=== PATIENT | male | born 1965 | race Caucasian/White ===

== ENCOUNTER → 2022-08-28 14:28 | Outpatient (BNVA) | payer OTHER, SELFPAY | PROVIDERS: PCP Family Medicine; Visit Provider Family Medicine | DX: Z13.220 Encounter for screening for lipoid disorders (principal); Z00.00 Encounter for general adult medical examination without abnormal findings; Z51.81 Encounter for therapeutic drug level monitoring | CPT/HCPCS: 80053; 80061; 85025 ==

== ENCOUNTER 2022-12-05 06:31 | Day surgery (SDC) | payer OTHER, SELFPAY ==
[2022-12-03 10:46] VITALS: BMI 19.6
[2022-12-05] MEDS: sodium chloride 0.9% 1,000 ML 30 ML IV (06:50)
[2022-12-05 06:52] VITALS: BP 103/78; PULSE 90; RESP 18; TEMP 36.1; O2SAT 97
--- NOTE | 2022-12-05 07:40 | ANES.PREANE2 ---
Pre-Anesthetic Assessment Height/Weight: Height 1.83 m Weight 65.771 kg Temp Pulse Resp BP Pulse Ox O2 Del Method 97.0 F L 90 18 103/78 97 12/05/22 06:52 12/05/22 06:52 12/05/22 06:52 12/05/22 06:52 12/05/22 06:52 12/05/22 06:52 Preop Diagnosis: Screening Operation Date: 12/05/22 08:15 Proposed Procedures p Colonoscopy 30517,Z12.11(Not Applicable) - Lino Beck DO Familial anesthetic complications: None Was Beta Darian taken within 24 hours: N/A Was Clonidine taken within 24 hours: N/A Last intake: Intake Last Liquid Date 12/04/22 Last Liquid Time 22:00 Last Solid Date 12/03/22 Last Solid Time 19:00 Social No alcohol 1.5 pack(s) per day 40 pack years Exam alert, oriented x 3 and clear to auscultation bilaterally Airway Submandibular: within normal limits Cervical ROM: within normal limits Mallampati: Class II Dentition: false History/ROS No significant history except as noted Pulmonary Chronic Obstructive Pulmonary Disease does not use inhaler CV/HEM None reported None reported Hepatic None reported GI Gastroesophageal Reflux Disease occasional GERD related to diet Metabolic None reported Musc/skel None reported Neuropsych None reported Anesthetic Plan ASA status: 2 Anesthesia: Anesthesia Evaluation and MAC Risk of > 500 ml blood loss (7ml/kg in children): No Medications/Allergies Home Medications Medication Instructions Recorded Confirmed Last Taken Type terbinafine HCl 250 mg tablet 250 mg PO DAILY 12 weeks #90 tabs 10/14/22 12/05/22 Unknown Rx Allergies Allergy/AdvReac Type Severity Reaction Status Date / Time Penicillins Allergy Unknown Verified 12/05/22 06:48 Current Medications Generic Name Dose Route Start Last Admin Trade Name Freq PRN Reason Stop Dose Admin Sodium Chloride 1,000 mls @ 30 mls/hr 12/05/22 06:45 12/05/22 06:50 Sodium Chloride 0.9% IV 12/06/22 06:44 30 mls/hr .Q24H LUDWIN Administration PFSH Anesthesia Surgical History (Updated 08/28/22 @ 14:03 by Mack Zepeda MD) Hx of tonsillectomy Family History (Updated 08/28/22 @ 16:56 by Mack Zepeda MD) Other Cancer Social History (Updated 08/28/22 @ 14:02 by Mack Zepeda MD) Smoking and tobacco status: current every day smoker cigarettes [ Other cigarette details: Started at age 17 and smokes 1-1.5 ppd] Alcohol intake: never 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
--- NOTE | 2022-12-05 08:33 | P.HP_ITS ---
Providers/Chief Complaint Primary Care Provider: Mack Zepeda MD Chief Complaint: Encounter for screening for malignant neoplasm of History of Present Illness Johnny Hay JR is a 57 year old male here for his first screening colon oscopy. He denies abdominal pain, nausea, emesis, diarrhea, constipation, hematochezia and/or melena. He reports that his great grandmother on his dad side had colon cancer. Medications/Allergies Home Medications Medication Instructions Recorded Confirmed Last Taken Type terbinafine HCl 250 mg tablet 250 mg PO DAILY 12 weeks #90 tabs 10/14/22 12/05/22 Unknown Rx Allergies Allergy/AdvReac Type Severity Reaction Status Date / Time Penicillins Allergy Unknown Verified 12/05/22 06:48 PFSH Acute PFSH: Surgical History (Updated 08/28/22 @ 14:03 by Mack Zepeda MD) Hx of tonsillectomy Family History (Updated 08/28/22 @ 16:56 by Mack Zepeda MD) Other Cancer Social History (Updated 08/28/22 @ 14:02 by Mack Zepeda MD) Smoking and tobacco status: current every day smoker cigarettes [ Other cigarette details: Started at age 17 and smokes 1-1.5 ppd] Alcohol intake: never 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 The patient is understanding of the risks and wishes to proceed. Attestations Medical Necessity Statement*: Home Coding Level of Care Code Acute Code for Chg Fwd Diagnoses Colon cancer screening Z12.11
[2022-12-05 08:53] VITALS: BP 182/76; PULSE 77; RESP 12; TEMP 36.1; O2SAT 96
[2022-12-05 09:03] VITALS: BP 98/75; PULSE 55; RESP 14; O2SAT 95
[2022-12-05 09:17] VITALS: BP 99/70; PULSE 68; RESP 16; O2SAT 98
--- NOTE | 2022-12-05 17:58 | ANE.PACU2 ---
Inpatient post-anesthesia follow up: Airway intact: Yes Vital signs: Temperature 97 F Pulse Rate 68 Respiratory Rate 16 Blood Pressure 99/70 Pulse Oximetry 98 Oxygen Delivery Me thod Room Air Oxygen Flow Rate 2 Fraction of Inspir ed Oxygen Hydration adequate: Yes Nausea and vomiting: No Pain level: 1 Mental status: Baseline
== END 2022-12-05 09:36 | disposition home or self-care (01) ==
PROVIDERS: PCP Family Medicine; Visit Provider Surgery
PROC: 0DJD8ZZ Inspection of Lower Intestinal Tract, Via Natural or Artificial Opening Endoscopic (ICD-10-PCS; CPT 45378; principal; 2022-12-05 08:15)
DX: Z12.11 Encounter for screening for malignant neoplasm of colon (principal); K64.8 Other hemorrhoids; D12.5 Benign neoplasm of sigmoid colon; D12.8 Benign neoplasm of rectum; F17.210 Nicotine dependence, cigarettes, uncomplicated; J44.9 Chronic obstructive pulmonary disease, unspecified; K21.9 Gastro-esophageal reflux disease without esophagitis
CPT/HCPCS: 45385; 88305; J2704; J7030

== ENCOUNTER 2023-08-31 13:58 | Outpatient (CLI) | payer OTHER, SELFPAY ==
--- NOTE | 2023-08-31 14:13 | XRR_ITS ---
PROCEDURE INFORMATION: Exam: XR Left Shoulder Exam date and time: 08/31/2023 2:47 PM Age: 58 years old Clinical indication: Pain; Shoulder; Left; Additional info: Left shoulder pain TECHNIQUE: Imaging protocol: Radiologic exam of the left shoulder. Views: 2 or more views. COMPARISON: CR XR cervical spine 3V* [id number] 08/31/2023 2:47 PM FINDINGS: Bones/joints: Normal. Soft tissues: Normal. XR/XR shoulder LT min 2V* [id number] IMPRESSION: No acute findings.
--- NOTE | 2023-08-31 14:13 | XRR_ITS ---
PROCEDURE INFORMATION: Exam: XR Cervical Spine Exam date and time: 08/31/2023 2:47 PM Age: 58 years old Clinical indication: Radicular pain (radiculopathy); Cervical region; Additional info: Cervical radiculopathy TECHNIQUE: Imaging protocol: Radiologic exam of the cervical spine. Views: 2 or 3 views. COMPARISON: CR XR shoulder LT min 2V* [id number] 08/31/2023 2:47 PM FINDINGS: Bones/joints: No acute fracture. Normal alignment. Minimal degenerative endplate changes of the mid and lower cervical spine. Soft tissues: Unremarkable. XR/XR cervical spine 3V* [id number] IMPRESSION: No acute findings.
== END 2023-08-31 13:59 | disposition home or self-care (01) ==
PROVIDERS: PCP Family Medicine; Visit Provider Family Medicine
DX: M25.512 Pain in left shoulder (principal); M54.12 Radiculopathy, cervical region
CPT/HCPCS: 72040; 73030

== ENCOUNTER 2023-10-01 06:59 | Outpatient (CLI) | payer OTHER, SELFPAY ==
--- NOTE | 2023-10-01 07:15 | MR_ITS ---
WS: [id number] MRI LEFT SHOULDER HISTORY: Left shoulder pain COMPARISON: Radiograph 08/31/2023 TECHNIQUE: Multiplanar sequences of the shoulder joint are submitted. Very mild AC joint arthritis. No significant osteophyte encroachment upon the supraspinatus muscle. S light downsloping of the acromion with mild subacromial impingement. There is a small amount of incre ased T2 signal in the supraspinatus muscle and tendon at the site of the subacromial impingement. No bursitis. Biceps tendon in normal position. No os acromion. No muscle atrophy or edema. No rotator cuff tendon tear. There is a small amount of marrow edema at t he site of the infraspinatus tendon attachment. No significant joint effusion. Degenerative changes n oted throughout the labrum. No tear is identified. IMPRESSION: 1. Moderate subacromial impingement with contact and deformity of the distal supraspinatus tendon and adjacent tendinopathy. 2. No rotator cuff tendon tear identified. 3. Subchondral cystic changes at the insertion site of the infraspinatus tendon. 4. Very mild AC joint arthropathy.
== END 2023-10-01 07:00 | disposition home or self-care (01) ==
LOC: RAD 06:59
PROVIDERS: PCP Family Medicine; Visit Provider Family Medicine
DX: M75.42 Impingement syndrome of left shoulder (principal); M19.012 Primary osteoarthritis, left shoulder
CPT/HCPCS: 73221

== ENCOUNTER 2025-01-20 07:29 | Outpatient (CLI) | payer OTHER, SELFPAY ==
[2025-01-20 07:48] VITALS: BMI 20.3
--- NOTE | 2025-01-20 07:49 | ECG_ITS ---
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 Interpretive Statements Patient unable to meet Target HR for Exercise mibi after 9:35 of exercise. Order switched to Lexiscan mibi. Lung unchanged pre/post procedure; Intraprocedure shortess of breath; ; Symptoms resoled by discharge PROCEDURE: At the baseline, the EKG revealed normal sinus rhythm with a normal ST Ts. Small Q waves inferior leads, possible old inferior [place].. The baseline heart was 80 bpm with a blood pressue of 113/88 mm of Hg Lexiscan was infused over a period of 20 seconds. A total of 0.4 milligrams of Lexiscan was infused. The stress phase was continued for a total of 5 minutes. Heart rate at the end of the stress phase was 101 bpm with a blood pressure 109/70 mm of Hg. The EKG at the peak infusion revealed no significant changes. Sestamibi was injected 20 seconds after the Lexiscan infusion. Heart rate at the end of the recovery phase was 99 bpm with a blood pressure of 107/70 mm of Hg. CONCLUSION: 1. No significant EKG changes with the LexiScan infusion 2. No LexiScan induced chest pain or cardiac arrhythmia 3. Normal blood pressure and heart rate response 4. Sestamibi/sestamibi perfusion scan pending; see separate report. Electronically Signed On 01-20-2025 14:14:03 CDT by Phi Ferro M.D. [email or web address]
--- NOTE | 2025-01-20 07:49 | NMCV_ITS ---
NM cherelle perf SPECT r/s* [id number] Johnny Hay Age: 59 Gender: M : 1965 Exam Date: 01/20/2025 08:44 Ordering Phys: Mack Zepeda MD Technologist: JOEL Vidal Exam Location: [facility] Indications: CP STRESS TEST Please see separate stress test report in [facility] for full findings IMAGE PROTOCOL Rest/Stress 1 Lexiscan Day Radiopharmaceutical Dose (mCi) Administration Site Administered by Rest: Tc-99m 10.6 IV Tonya Saeed, INDUSTRIAL SERVICER Sestamibi Stress:Tc-99m 32.7 IV Tonya Ortegagle, INDUSTRIAL SERVICER Sestamibi Rest: 20-Jan-2025 60 Discovery 630 Stress: 20-Jan-2025 30 Discovery 630 0.4mg Lexiscan. Supine position only as patient was unable to lay prone. SPECT RESULTS Technical Quality: Good Raw Data Analysis: Normal Image Corrections: No attenuation or motion correction applied Summed Stress Score: 8 Summed Rest Score: 5 Summed Difference Score: 4 PERFUSION FINDINGS Moderate area of minimal to moderately decreased tracer uptake nvolving the mid and apical inferior, mid inferoseptal, mid inferolateral and apical lateral segments. Significant reversibility was noted in the mid inferior region with slight reversibility in the inferolateral and apical inferior regions, at the supine position. Compared to the prone position, no significant reversibility was noted FUNCTIONAL RESULTS (calculated via Gated SPECT) Stress Image LV EF (%): 68 Stress EDV (mL):80 TID: 1.02 Stress ESV (mL):26 FUNCTIONAL FINDINGS: Segmental wall motion analysis revealing no gross wall motion abnormalities IMPRESSIONS 1. Myocardial perfusion imaging revealing moderate area of minimal to moderately decreased tracer uptake involving the inferior, inferolateral and inferoseptal regions with some reversibility suggesting myocardial scarring with ischemia in the distribution of the right coronary artery/circumflex artery. However because of the inconsistency with the prone imaging, this could, most likely be artifactual.. Clinical correlation is recommended. 2. Normal LV ejection fraction of 68%. 3. LV wall motion analysis revealing no gross wall motion abnormalities. 4. Normal LV volume. No similar previous studies are available for comparison Dr Phi Ferro MD [facility] (Electronically Signed) Final Date: 20 January 2025 11:16 S
--- NOTE | 2025-01-20 09:26 | PC.NURSE ---
Stress test Exercise mibi performed as ordered by physician. Pt unable to meet target HR after 9:35 of exercise on treadmill. Due to leg fatigue and shortness of breath treadmill stopped. Pt only met 80% of target HR. Dr. Ferro notified of incomplete exercise mibi. Telephone orders received to proceed with Lexiscan mibi.
[2025-01-20] MEDS: regadenoson 0.4 Mg/5 ml Syringe IVP (09:31)
[2025-01-20 09:41] VITALS: BP 107/75; PULSE 99
== END 2025-01-20 07:30 | disposition home or self-care (01) ==
PROVIDERS: PCP Family Medicine; Visit Provider Family Medicine
DX: R07.9 Chest pain, unspecified (principal); R93.1 Abnormal findings on diagnostic imaging of heart and coronary circulation
CPT/HCPCS: 36415; 78452; 93017; 96374; A9500; J2785

== ENCOUNTER 2025-02-17 11:33 | Outpatient (CLI) | payer OTHER, SELFPAY ==
[2025-02-17 13:01] LABS: Basophils # 0.1 10^3/uL (0.0-0.1); Basophils % 0.9 %; Eosinophils % 0.1 %; Hematocrit 44.4 % (37-53); Lymphocytes # 2.8 10^3/uL (0.8-4.8); Lymphocytes % 34.6 %; Mean Corpuscular Hemoglobin 29.1 pg (27-33); Mean Platelet Volume 9.1 fL (7.4-10.4); Monocytes # 1.5 10^3/uL (0.2-0.9); Monocytes % 18.4 %; Neutrophils # 3.73 10^3/uL (1.8-7.7); Neutrophils % 45.8 %; Nucleated Red Blood Cells % 0 %; Platelet Count 241 10^3/cmm (157-399); Red Blood Count 4.88 10^6/uL (3.85-5.65); Red Cell Distribution Width 13.5 % (12.1-15.1); White Blood Count 8.15 10^3/uL (3.29-11.43)
[2025-02-17 13:18] LABS: INR 0.94 (0.83-1.21); Prothrombin Time (Patient) 13.3 Seconds (12.0-15.1)
[2025-02-17 13:21] LABS: Anion Gap 15.2 (5-19); Blood Urea Nitrogen 7 mg/dL (6-20); Calcium 8.8 mg/dL (8.5-10.5); Carbon Dioxide 23 mmol/L (22-29); Chloride 102 mmol/L (98-107); Glucose 73 mg/dL (65-115); Osmolality Calculated 279 mOsm/kg (285-295); Potassium 4.2 mmol/L (3.5-5.1); Sodium 136 mmol/L (136-145)
== END 2025-02-17 11:34 | disposition home or self-care (01) ==
LOC: LAB 11:38
PROVIDERS: PCP Family Medicine; Visit Provider Internal Medicine
DX: R94.39 Abnormal result of other cardiovascular function study (principal); R07.9 Chest pain, unspecified
CPT/HCPCS: 36415; 80048; 85025; 85610

== ENCOUNTER 2025-02-20 05:48 | Outpatient (CLI) | payer OTHER, SELFPAY ==
[2025-02-20] VITALS (12 sets, daily range): BP systolic 93–108; BP diastolic 63–74; PULSE 54–77; RESP 15–24; TEMP 36.7; O2SAT 92–99; BMI 20.3
--- NOTE | 2025-02-20 06:00 | XACV_ITS ---
Exam Room: 2 Ht: 183 cm Wt: 68 kg BSA: 1.85 m2 Gender: Male : 1965 Any Known Allergies: Penicillins Exam Priority: Routine Procedure(s): Procedure Description: Diagnostic procedure Procedure Description: Coronary angiogram Diagnostic Cath Status: Elective Diagnostic Findings * INDICATION: Chest pain/abnormal stress test. * No significant disease noted in the Left Main, Left Anterior Descending, Right, or Circumflex coronary arteries. * Coronary angiography shows right dominance. Conclusions 1. No significant disease noted in the Left Main, Left Anterior Descending, Right, or Circumflex coronary arteries. 2. Normal left ventricular systolic function. Ejection fraction of 50%. Recommendations * Risk factor modification. * Outpatient cardiology follow up in 2 weeks. Interventional RX Recommendation: medical therapy and/or counseling Diagnostic RX Recommendation: medical therapy and/or counseling Anticoagulation: Heparin Ventriculography Ejection Fraction: 50.0 % Pressures Phase:Rest AO : 79 / 55 ( 64 ) @ 10:18:00 AM 97 / 65 ( 79 ) @ 10:26:00 AM 97 / 65 ( 79 ) @ 10:26:00 AM LV : 105 / -9 / 9 @ 10:24:00 AM 107 / -8 / 11 @ 10:26:00 AM 108 / -7 / 11 @ 10:26:00 AM Valves Phase:DefaultPhase AV : 11.0 @ 9:31:43 AM AV Mean Gradient: 9.0 @ 9:31:43 AM Clinical Evaluation EBL: 5mL-10mL Procedural Details Procedure Consent Obtained. Pre-Procedure Time Out. Identified patient by full name and date of as verbalized by the patient/guarantor. Does the consent match the physician's order: Yes. Accurate & Complete Informed Consent: Yes. Inpatient/Outpatient History & Physical on Chart: Yes. If H&P is completed, is and addenduem needed: No; If yes, is the addendum complete: N/A. Visualize and Verify Site with Patient/Guarantor: N/A. Relevant Radiology Images available: Yes. Pre-op teaching completed and patient verbalized understanding. The risks, benefits, and alternatives of sedation and/or procedure were discussed by physician. The patient agrees to continue. Procedure started. Physician arrived. [facility] Clinical Fraility Score: 3: Managing Well. Property Master Indications: Suspected CAD. Chest Pain Symptom Assessment: Typical Angina Symptoms. Correct patient, site and procedure confirmed by cath team. Current diagnosis: Chest Pain. PERRLA. Strong, equal hand predatory animal trapper bilaterally. Lungs clear x 5 lobes. IV Site on Arrival: 20 gauge in the right forearm. IV Fluids: 0.9% NaCl at KVO. 0 mL infused prior to incinerator plant laborer. Oxygen started at 2liters/min via nasal canula. Pre Procedural Pulses: bilateral dorsalis pedis was 2+. Pre Procedural Pulses: bilateral posterior tibial was 2+. Pre Procedural Pulses: bilateral radial was 3+. right groin was prepped with chloroprep then draped in the usual sterile fashion. right radial was prepped with chloroprep then draped in the usual sterile fashion. Current Diagnosis : Chest Pain. Baseline sample Acquired. HR: 61 BPM. Physician scrubbed in. Immediate Pre-Procedure Time Out. Correct Patient: Yes; Correct Procedure: Yes; Correct Site: Yes; Correct Patient Position: Yes; Correct Supplies: Yes; Dried Flammable Prep: Yes; Blood Products Available: N/A;. Lidocaine 1% infiltrated to the right radial. Arterial access obtained. A 5 nepali TIG catheter in over wire. Multiple views taken of left coronary artery. Catheter redirected to the RCA. Multiple views taken of right coronary artery. Catheter removed over the exchange wire. A 5 nepali Angled Pig catheter in over wire. EDP Sample taken: LV 105/-10,9; HR: 74 BPM; SpO2: 95%. LV gram performed in HUNG @ 10 mL/second for a total of 30 mL. EDP Sample taken: LV 107/-9,11; HR: 69 BPM; SpO2: 96%. Pullback taken: LV 108/-8,11; AO 97/65(79); Mean: 9mmHg, Peak to Peak: 11mmHg, SEP: 18sec/min; HR: 69 BPM; SpO2: 96%. Catheter removed over the exchange wire. A TR Band was successful obtaining hemostatsis at the Right Radial artery insertion site. Vital chart was stopped. Post Procedure: Pulses reassessed and unchanged. PERRLA. Strong, equal hand predatory animal trapper bilaterally. No VTE prophylaxis required. Medication's Wasted: Lidocaine 1% = 18 mL. Medication's Wasted: Nitro = 49.8 mcg. Total IV fluids: 125 mL. Medication's Wasted: Heparin = 1000 units. Medication's Wasted: Other = Fentanyl 75mcg Versed 1 mg. Post-op diagnosis: Non-obstructive CAD. Complications: None. Estimated blood loss: 5mL-10mL. Responsiveness - Normal response to verbal stimuli; alert and oriented, PERRLA. Airway - Unaffected, no intervention required; spontaneous ventilation. Circulation: W/N/L, pulses unchanged. Nausea/Vomiting: No. Procedure completed. Patient transferred by wheelchair to CPRU. Access Site Site: Right Radial artery Sheath Size: 6 Fr Hemostasis Method: TR Band Hemostasis Success: Successful Procedure Medications Start: 9:12 AM Stop: 9:12 AM Medication: Versed 1 mg and Fentanyl 25 mcg Amount: 1 Route: I.V. Start: 9:16 AM Stop: 9:16 AM Medication: Nitrogylcerin Amount: 200 mcg Route: I.A. Start: 9:18 AM Stop: 9:18 AM Medication: Heparin Amount: 5000 units Route: I.V. Start: 9:20 AM Stop: 9:20 AM Medication: 0.9% Saline Amount: 250 ml/hr Route: I.V. bolus I, the attending physician, have reviewed and verified all procedure medications. Yes, all medications given per verbal order History/Risk Factors Hypertension: No Dyslipidemia: No Peripheral Arterial Disease (PAD): No Myocardial Infarction (OR): No Obesity: No Renal Disease: No Tobacco Use: Current/Recent(w/in 1 year) Prior Interventions PCI: No CABG: No Valve Surgery: No Report Signatures Finalized by Jan Meade MD on 02/20/2025 10:01 AM
[2025-02-20 06:28] LABS: Basophils % 0.7 %; Eosinophils # 0.1 10^3/uL (0.0-0.8); Eosinophils % 2.4 %; Hematocrit 43.7 % (37-53); Lymphocytes # 2.3 10^3/uL (0.8-4.8); Lymphocytes % 40.3 %; Mean Corpuscular HGB Conc 33.2 g/dL (30-55); Mean Corpuscular Hemoglobin 28.9 pg (27-33); Mean Corpuscular Volume 87.1 fl (82-101); Mean Platelet Volume 9.1 fL (7.4-10.4); Monocytes # 0.7 10^3/uL (0.2-0.9); Neutrophils # 2.56 10^3/uL (1.8-7.7); Neutrophils % 44.4 %; Nucleated Red Blood Cells % 0 %; Platelet Count 273 10^3/cmm (157-399); Red Blood Count 5.02 10^6/uL (3.85-5.65); Red Cell Distribution Width 13.2 % (12.1-15.1); White Blood Count 5.76 10^3/uL (3.29-11.43)
[2025-02-20] MEDS: diphenhydrAMINE 50 mg Capsule PO (06:33)
[2025-02-20 06:50] LABS: Blood Urea Nitrogen 9 mg/dL (6-20); Calcium 9.2 mg/dL (8.5-10.5); Carbon Dioxide 22 mmol/L (22-29); Chloride 106 mmol/L (98-107); Creatinine Clr Calc Pharmacy 106.3086; Glomerular Filtration Rate 99.6 mL/min (90-130); Glucose 88 mg/dL (65-115); Osmolality Calculated 290 mOsm/kg (285-295); Sodium 141 mmol/L (136-145)
--- NOTE | 2025-02-20 07:52 | W.PM.OPSUD ---
Surgery/Procedure H&P Update DATE OF PROCEDURE: February 20, 2025 DATE H&P PERFORMED: 02/02/25 H&P UPDATE INFORMATION: I have reviewed H&P completed within last 30 days, I have examined patient prior to procedure and No changes to prior documentation PREOP DIAGNOSIS: Chest pain/ CCS class 3 symptoms/ abnormal stress test PRIMARY INDICATION FOR PROCEDURE: Chest pain/ CCS class 3 symptoms/ abnormal stress test PLANNED PROCEDURE: Operation Date: 02/20/25 07:00 Proposed Procedures p Cardiac Catheterization - [facility] w/w/o LV & coros(Left) - Jan Meade M.D Possible percutaneous coronary intervention PATIENT REASSESSED PRIOR TO SEDATION, WITH NO CHANGE NOTED: Yes PHYSICAL EXAM: alert, oriented x 3, clear to auscultation bilaterally and regular rate & rhythm AIRWAY EVAL/ANESTHESIA PLAN: normal airway, ASA III, Local Anesthesia, Risks, benefits & alternatives of sedation and/or procedure discussed and Patient agrees to continue as planned ADDITIONAL INFORMATION: Moderate sedation
--- NOTE | 2025-02-20 09:30 | SUR.PHASEII ---
POST CATH NOTE Received patient from laboratory animal care veterinarian. Status post cardiac catheterization via the right radial approach. TR Band in place. Site hemostatic with no s/s of bleeding present at this time. Verbal post cath instructions went over with the patient and the family. They understood well. Vitals and assessments per flow sheet in PCS. Call light within reach. Informed to call for needs.
--- NOTE | 2025-02-20 10:18 | SUR.PHASEII ---
POST OP FLUIDS 0.9% NS set at 100 ml/hr per verbal order from Dr Meade until DC today. Noted.
--- NOTE | 2025-02-20 11:09 | PM.SDS ---
Short Stay Summary Providers Date of Admit/Discharge: 02/20/25 Attending Provider: Jan Meade M.D Primary Care Provider: Mack Zepeda MD Chief Complaint: R94.39 HPI History of Present Illness Johnny Hay is a 59 year old male with past medical history of smoking and recently diagnosed hypercholesterolemia has been having on and off chest tightness symptoms for few months. He recently has noticed that they have progressed and he feels chest tightness at rest as well. Has noticed radiation to the neck. Had recent stress test that showed ischemia in RCA/circumflex artery territories. Review of Systems Const: Denies: fever(s), chills, change in weight, fatigue or diaphoresis Eyes: Denies: change in vision ENMT: Denies: epistaxis Card: Denies: chest pain, palpitations, irregular heart rhythm, edema, syncope, pre-syncope, dyspnea on exertion, orthopnea or leg pain with exertion Resp: Denies: dyspnea, productive cough or wheezing GI: Denies: nausea, vomiting, hematemesis, hematochezia or melena : Denies: hematuria Musc: Denies: extremity swelling Sincere/Lymph: Denies: easy bruising or easy bleeding Home Meds/Allergies Home Medications and Allergies Allergies Allergy/AdvReac Type Severity Reaction Status Date / Time Penicillins Allergy Unknown Verified 02/20/25 06:32 PFSH Acute PFSH: Surgical History Hx of tonsillectomy Family History Other Cancer Social History Smoking and tobacco/nicotine status: current every day tobacco/nicotine user cigarettes Packs smoked per day: 1.5 [ Other cigarette details: Started at age 17 and smokes 1-1.5 ppd] Alcohol intake: never Substance/Drug Use: never Additional social history: Home destroyed by jo-annluanne in December 2024 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 Vitals/I&O/Wt Last Vital Signs Temp 98.0 F 02/20/25 06:00 Pulse 54 L 02/20/25 10:15 Resp 21 H 02/20/25 10:15 BP 93/74 02/20/25 10:15 Pulse Ox 99 02/20/25 10:15 O2 Del Method Room Air 02/20/25 10:15 02/19/25 02/20/25 02/20/25 22:59 06:59 14:59 Intake Total 840 / 840 Balance 840 / 840 Weight last 48 hrs Weight 150 lb Physical Exam Const: COMMON NORMALS: no acute distress and patient oriented x3 GENERAL APPEARANCE: cooperative ORIENTATION/CONSCIOUSNESS: Yes awake, Yes oriented to person, Yes oriented to place and Yes oriented to time Chest: COMMONS NORMALS: normal inspection of the chest and normal palpation of entire chest wall CHEST: Yes Symmetrical chest wall rise Resp: COMMON NORMALS: normal respiratory effort, No retractions, No use of accessory muscles and clear to auscultation bilaterally AUSCULTATION: clear to auscultation bilaterally Cardio: COMMON NORMALS: regular rate, regular rhythm, S1 normal heart sound present, S2 normal heart sound present, No gallops present (Cardio), No clicks present (Cardio), No murmurs present (Cardio) and No rub (Cardio) RATE: regular rate RHYTHM: regular rhythm HEART SOUNDS: S1 normal heart sound present and S2 normal heart sound present PERIPHERAL PULSES: radial pulses present positive right 2+ and femoral pulses present positive right 2+ Neuro: COMMON NORMALS: patient oriented x3 and moves all extremities SENSORIUM/ORIENTATION: Yes oriented to person, Yes oriented to place and Yes oriented to time Skin: WOUNDS: Yes surgical site (no hematoma palpable) Details: no odor Hospital Course Discharge Summary He underwent diagnostic coronary angiogram today, no significant stenosis present. Plan for discharge today after TR band is released. Will discontinue aspirin. 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 SSS Data Data Completed and Pending: Completed Studies During Hospitalization Category Date Time Status GRADUATE TEACHING ASSOCIATE request for service Routin e Exams 02/20/25 06:00 Completed Discharge Plan Discharge Patient Disposition: Home Prescriptions: Continued diphenhydramine HCl [Benadryl] 25 mg capsule 25 mg PO TID PRN (Reason: allergy symptoms) Qty: 30 5RF albuterol sulfate 90 mcg/actuation HFA aerosol inhaler 2 puff inhalation Q6H PRN (Reason: shortness of breath or wheezing) Qty: 8.5 6RF Discontinued aspirin 81 mg tablet,delayed release (DR/EC) 81 mg PO DAILY Qty: 90 3RF Discharge Orders: Discharge Order (Routine); Ordered 02/20/25 Ordered By: Ginny Goncalves Referrals: Genia Erickson NP [Nurse Practitioner, Cardiology] - 03/07/25 1:30 pm Referral Note: POST RADIAL HEART CATHETERIZATION CHECK UP Diet: Advance as tolerated Activity: Increase activity as tolerated Patient Instructions: How to Stop Smoking (DC), After Radial Heart Catheterization (GEN) Activity Restrictions/Additional Instructions: No lifting over 5 pounds with the right arm for 4 days. Print Language: Greek Attestations Medical Necessity Statement*: Discharge home today Time Spent in Patient Care*: less than 30 min Quality Metrics Clinical Quality Measures: [ No reported AMI, CVA or VTE this stay] Coding Level of Care Code Acute Code for Jaleesag Fwryan
== END 2025-02-20 12:16 | disposition home or self-care (01) ==
PROVIDERS: PCP Family Medicine; Visit Provider Internal Medicine
DX: R07.9 Chest pain, unspecified (principal); R94.39 Abnormal result of other cardiovascular function study; E78.00 Pure hypercholesterolemia, unspecified; F17.210 Nicotine dependence, cigarettes, uncomplicated
CPT/HCPCS: 36415; 80048; 85025; 93458; 96374; 99152; 99153; C1769; C1887; C1894; J1644; J2250; J3010; J3490; J7030; J9999; Q0163; Q9967

== ENCOUNTER 2025-04-19 12:39 | Outpatient (CLI) | payer OTHER, SELFPAY ==
--- NOTE | 2025-04-19 13:30 | USCV_ITS ---
Johnny Hay Age: 59 Gender: M : 1965 Exam Date: 04/19/2025 13:17 Ordering Phys: Genia Erickson NP Technologist: Exam Location: [facility] [place] Indication: cp chest tightness BP: 120 / 70 HR: 74 Rhythm: Sinus Technical Quality: Adequate MEASUREMENTS (Male / Female) Normal Values 2D ECHO LV Diastolic Diameter PLAX 4.4 cm 4.2 - 5.9 / 3.9 - 5.3 cm IVS Diastolic Thickness 1.0 cm 0.6 - 1.0 / 0.6 - 0.9 cm IVS Systolic Thickness 1.5 cm LVPW Diastolic Thickness 0.9 cm 0.6 - 1.0 / 0.6 - 0.9 cm LVPW Systolic Thickness 1.5 cm LVOT Diameter 2.1 cm LV Ejection Fraction 2D Teich 64.0 % LV Ejection Fraction MOD 4C 58.9 % LV Ejection Fraction MOD 2C 57.8 % LV Ejection Fraction 2C AL 57.7 % LA Diameter 2.5 cm RA Systolic Volume 4C AL 28.5 ml RA Systolic Volume 4C MOD 25.6 ml LA Sys Volume AL 32.7 cm cubed LA Sys Volume Index AL 17.7 cm cubed/m squared Aorta at Sinotubular Diameter 3.4 cm IVC Diameter 1.7 cm M-MODE LA Ao Ratio MM 1.2 AV Cusp Separation MM 2.3 cm DOPPLER AV Peak Velocity 97.0 cm/s LVOT Peak Velocity 69.0 cm/s AV Area Cont Eq vti 3.4 cm squared AV Area Cont Eq pk 2.6 cm squared MV Peak Velocity 69.0 cm/s MV Area PHT 3.3 cm squared Mitral E to A Ratio 1.1 TR Peak Velocity 204.0 cm/s TR Peak Gradient 16.6 mmHg TV Peak E Velocity 68.0 cm/s PV Peak Velocity 70.0 cm/s FINDINGS Left Ventricle Left ventricle is normal in size. LV systolic function is normal with EF of 50-55%. No regional wall motion abnormalities are seen. Right Ventricle Normal in size and function Right Atrium Normal in size Left Atrium Normal in size Mitral Valve Structurally normal mitral valve. Mild mitral regurgitation Aortic Valve Structurally normal aortic valve. No significant stenosis or regurgitation. Tricuspid Valve Insufficient TR jet to evaluate RVSP Pulmonic Valve Not well visualized Pericardium Normal Aorta Normal in size IVC Appears to be normal CONCLUSIONS LV systolic function is normal with EF of 50-55% Mild mitral regurgitation Jan Meade MD (Electronically Signed) Final Date: 26 April 2025 10:34 S
== END 2025-04-19 12:40 | disposition home or self-care (01) ==
LOC: RAD 12:40
PROVIDERS: PCP Family Medicine; Visit Provider Nurse Practitioner Family
DX: E78.5 Hyperlipidemia, unspecified (principal); I34.0 Nonrheumatic mitral (valve) insufficiency
CPT/HCPCS: 93306